=== PATIENT | male | born 1960 | race Caucasian/White ===

== ENCOUNTER 2023-09-05 10:07 | Emergency (ER) | payer MEDICAID ==
[~2023-09-05] VITALS: Ht 175.3 cm; Wt 121.9 kg
[2023-09-05 10:26] LABS: BASOPHILS 0.6 % (0-2); EOSINOPHILS 2.2 % (0-6); HEMATOCRIT 39.1 % (35.0-50.0); HEMOGLOBIN 13.3 g/dL (12.0-18.0); MCH 31.9 (27-36); MCHC 34.1 g/dl (30-36); MCV 93.5 fl (81-99); MONOCYTES 7.9 % (0-12); NEUTROPHILS 63.3 % (39-80); PLATELET COUNT 321 K/uL (140-440); RBC 4.18 M/ul (4.3-5.7); RDW 15.3 (10.5-15.0)
[2023-09-05 10:31] LABS: INR 1.02 (0.80-1.30)
[2023-09-05 10:36] VITALS: BP 161/116
[2023-09-05 10:36] LABS: ALBUMIN 3.3 g/dL (3.4-5.0); ALBUMIN/GLOBULIN RATIO 0.51 (1.1-2.4); ANION GAP 15.8 (7-21); BILIRUBIN, TOTAL 0.3 ng/dL (0.2-1.0); BUN/CREATININE RATIO 15.15 (6.0-28.6); CALCIUM 9.4 mg/dL (8.5-10.1); CREATININE, SERUM 0.99 mg/dL (0.70-1.30); POTASSIUM 3.8 mmol/L (3.5-5.1); PROTEIN, TOTAL 9.8 g/dL (6.4-8.2)
[2023-09-05 11:27] LABS: INFLUENZA B NAA NEGATIVE (NEGATIVE); RESPIRATORY SYNCYTIAL VIR NAA NEGATIVE (NEGATIVE)
--- NOTE | 2023-09-06 17:55 | EKG ---
[facility] [address] [facility] [place] [address] Signed Sinus rhythm with occasional premature ventricular complexes Inferior infarct , possibly acute ACUTE [place] / STEMI Consider right ventricular involvement in acute inferior infarct Abnormal ECG No previous ECGs available Confirmed by ZOHREH WATT MD ([id number]) on 09/06/2023 5:55:18 PM Electronically Signed By: ZOHREH WATT 09/06/23 1755 PATIENT NAME: JOSUE BISHOP Electrocardiogram DATE OF : 62 PHYSICIAN: ZOHREH WATT REPORT #: [id number] REPORT IS CONFIDENTIAL AND NOT TO BE RELEASED WITHOUT AUTHORIZATION
== END 2023-09-05 10:36 | disposition short-term general hospital (02) ==
LOC: ED 10:07
PROVIDERS: Emergency Medicine
DX: I21.3 ST elevation (STEMI) myocardial infarction of unspecified site (principal); Z20.822 Contact with and (suspected) exposure to COVID-19
CPT/HCPCS: 36415; 71045; 80053; 85025; 85610; 85730; 87502; 93005; 93010; 96374; 96375; 99285-25; A9270; C9803; J0282; J1644; J7030; U0002

== ENCOUNTER 2023-11-19 12:46 | Emergency (ER) | payer MEDICAID ==
[~2023-11-19] VITALS: Ht 175.3 cm; Wt 122.6 kg
[2023-11-19] MEDS ORDERED: CLOPIDOGREL75 MG PO (13:39)
[2023-11-19] MEDS ORDERED: OXYCODONE HCL5 MG PO (13:41)
[2023-11-19 13:52] VITALS: BP 154/87
== END 2023-11-19 13:53 | disposition home or self-care (01) ==
LOC: ED 12:46
DX: M84.48XA Pathological fracture, other site, initial encounter for fracture (principal); X50.1XXA Overexertion from prolonged static or awkward postures, initial encounter; Z88.8 Allergy status to other drugs, medicaments and biological substances
CPT/HCPCS: 73030; 99283-25